=== PATIENT | male | born 1990 | race Caucasian/White ===

== ENCOUNTER 2018-11-03 07:54 | Emergency (ER) | payer OTHER ==
[2018-11-03] MEDS ORDERED: Dicyclomine 20 MG TAB ONE (08:20)
[2018-11-03 08:31] LABS: #Eosinphils 0.1 thou/uL (0.0-0.7); #Lymphocytes 1.4 thou/uL (1.20-3.40); #Monocytes 0.7 thou/uL (0.11-0.59); #Neutrophils 6.1 thou/uL (1.40-6.50); %Basophils 0.2 % (0.0-1.0); %Eosinophils 1.6 % (0.0-10.0); %Lymphocytes 17.2 % (21.0-51.0); %Monocytes 8.1 % (0.0-10.0); %Neutrophils 72.8 % (42.0-75.0); Hemoglobin 14.9 g/dL (14.0-18.0); Mean Corpuscular HGB CONC 33.3 g/dL (32.0-36.0); Mean Corpuscular Hemoglobin 31.1 pg (27.0-31.0); Mean Corpuscular Volume 93.3 fL (78.0-98.0); Mean Platelet Volume 7.9 fL (7.4-10.4); Platelet Count 229 thou/uL (130-400); RBC Distribution Width 11.4 % (11.5-14.5); Red Blood Cell (RBC) Count 4.78 mill/uL (4.70-6.10); White Blood Cell (WBC) Count 8.4 thou/uL (4.8-10.8)
[2018-11-03 08:56] LABS: ALT (SGPT) 12 U/L (8-55); AST (SGOT) 17 U/L (5-34); Albumin 4.8 g/dL (3.5-5.0); Alkaline Phosphatase 80 U/L (40-150); Anion Gap 12 mmol/L (10-20); BUN (Urea Nitrogen) 14 mg/dL (8.9-20.6); Bilirubin, Total 0.7 mg/dL (0.2-1.2); Calc. Creatinine Clearance 0 mL/min (70-130); Calcium 9.8 mg/dL (7.8-10.44); Carbon Dioxide 29 mmol/L (22-29); Chloride 102 mmol/L (98-107); Estimated GFR-MDRD 66; Globulin 3.1 g/dL (2.4-3.5); Glucose 98 mg/dL (70-105); Protein, Total 7.9 g/dL (6.0-8.3); Sodium 139 mmol/L (136-145)
--- NOTE | 2018-11-03 09:27 | CT ---
CT ABDOMEN AND PELVIS CONTRAST ENHANCED: HISTORY: Lower abdominal pain. FINDINGS: Contrast enhanced CT images of the abdomen and pelvis demonstrate the lung bases to be unremarkable. No evidence of free intraperitoneal air is seen. The liver, spleen, pancreas, gallbladder, and adrenal glands are unremarkable. There is a cortical c yst seen in the upper pole of the right kidney. No other renal parenchymal abnormalities seen. No e vidence of hydronephrosis, masses, or lesions seen. No evidence of renal calculi seen. No evidence of periaortic lymphadenopathy seen. No dilated loops of small bowel seen. A normal appendix is visu alized. A normal colon is seen. No evidence of bowel obstruction, ileus, or significant bowel patho logy is seen. There does appear to be some sigmoid colonic diverticulosis without evidence of divert iculitis. IMPRESSION: 1. Colonic diverticulosis. 2. Cortical cyst seen in the upper pole of the right kidney. POS: [facility]
[2018-11-03 09:54] LABS: Bilirubin Negative (Negative); Blood, Urine Negative (Negative); Clarity CLEAR (Clear); Glucose, Urine (Dipstick) Negative (Negative); Leukocyte Negative (Negative); Nitrite Negative (Negative); Protein, Urine (Dipstick) Negative (Neg-Trace); Specific Gravity, Urine 1.036 (1.002-1.036); Urobilinogen 0.2 mg/dL (0.2-1.0)
== END 2018-11-03 09:41 | disposition home or self-care (01) ==
LOC: ERS 07:54
DX: R10.32 Left lower quadrant pain (principal)
CPT/HCPCS: 74177; 80053; 81003; 85025; 96360